=== PATIENT | male | born 1955 | race Caucasian/White ===

== ENCOUNTER → 2019-01-08 | Day surgery (SDC) | payer BC ==
[2018-12-31 14:23] LABS: ANION GAP 13.2 mmol/L (8-16); BLOOD UREA NITROGEN 23 mg/dL (7-26); BUN/CREATININE RATIO 20 (6-25); CALCIUM 9.9 mg/dL (8.4-10.2); CARBON DIOXIDE 27 mmol/L (22-29); CHLORIDE 103 mmol/L (98-107); CREATININE, SERUM 1.15 mg/dL (0.72-1.25); EST GLOMERULAR FILTRATION RATE > 60 ML/MIN (60-); GLUCOSE 177 mg/dL (74-118); POTASSIUM 4.2 mmol/L (3.5-5.1); SODIUM 139 mmol/L (136-145)
[~2019-01-08] MED LIST: ALLOPURINOL300 MG PO; ASPIR 8181 MG PO; ATORVASTATIN CA20 MG PO; BACITRACIN 50,000 UNIT VIAL ONE; BUPIVACAINE HCL 0.5% INJ 30 ML VIAL INJ ONE; BYDUREON SQ; CALAN SR120 MG PO; CLINDAMYCIN PHOS 900MG/ 50ML 50 ML IV ONE; DEXAMETHASONE SOD PHOS INJ 4 MG/ML VIAL ONE; EPHEDRINE SULFATE INJ 50 MG/10 ML SYR ONE; FENTANYL CITRATE/PF 100MCG/2 ML INJ ONE; GLIMEPIRIDE2 MG PO; INVOKAMET PO; IRBESARTAN150 MG PO; KETOROLAC TROMETHAMINE 30 MG/ML VIAL ONE; LIDOCAINE HCL 2% LOCAL INJ 5 ML SDV VIAL INJ ONE; LYRICA50 MG PO; MIDAZOLAM HCL 2 MG/2 ML VIAL ONE; ONDANSETRON HCL INJ 2MG/ML 2ML 2 MG/ML VIAL ONE; PROPOFOL IV EMULSION 10 MG/ML 20 ML VIAL ONE; SEVOFLURANE INHAL SOLN 250 ML PEN BTL ONE; VASCEPA PO; [UNRECOGNIZED DRUG - OTHER] INJ; [UNRECOGNIZED DRUG - OTHER] PO
[2019-01-08 08:35] VITALS: BP 123/66
--- NOTE | 2019-01-08 14:25 | Operative Report ---
DATE OF PROCEDURE: 01/08/2019 SURGEON: Kristie Wolfe DPM TAXICAB COORDINATOR SURGEON: Radha Munoz DPM PREOPERATIVE DIAGNOSES: 1. Right hallux arthritis with bone fragment. 2. Right hallux exostosis. PREOPERATIVE DIAGNOSES: 1. Right hallux arthritis with bone fragment. 2. Right hallux exostosis. PLANNED PROCEDURE: 1. Right hallux interphalangeal joint fusion with excision of bone fragment. 2. Exostectomy of right hallux. TAXICAB COORDINATOR: Kristie Wolfe DPM. ANESTHESIA: General with a postoperative block consisting of 10 mL of 0.5% Marcaine plain. HEMOSTASIS: Pneumatic thigh tourniquet set at 350 mmHg for a total time of approximately 30 minutes. MATERIALS: One 4.0 cannulated Synthes screw, 3-0 Vicryl, 4-0 nylon. ESTIMATED BLOOD LOSS: Less than 10 mL. PATHOLOGY: None. PROCEDURE NOTE: The patient was seen in the preoperative waiting room, where the correct procedure and side was identified. The patient was brought to the operating room and placed on the operating room table in the supine position. General anesthesia was initiated at this time. A well-padded pneumatic tourniquet was placed about the patient's right thigh. The right foot, ankle, and leg were then scrubbed, prepped and draped in the usual aseptic manner. The right foot, ankle, and leg were exsanguinated with an Esmarch bandage and the pneumatic thigh tourniquet was inflated to 350 mmHg for a total time of approximately 30 minutes. Attention was directed to the dorsal aspect of the patient's right hallux, where a 3 cm linear incision was made directly over the interphalangeal joint. Incision was carried through the subcutaneous tissues them from deep or underlying structures. All vital and neurovascular structures were identified, retracted medial and lateral, and all bleeders were cauterized or ligated as deemed necessary. At this time with care to ensure that the extensor hallucis longus was intact, a capsulotomy was performed at the interphalangeal joint. It should be noted that upon incision, a large bone fragment was noted to be floating free in the joint, which was excised and passed off to the back table. Utilizing a sagittal saw, the articular cartilage of the head of the proximal phalanx was brought to the base of the distal phalanx was resected and passed off to the back table. The remaining articular cartilage was denuded with a rongeur and curette. The wound was then copiously irrigated with sterile saline mixed with bacitracin. Next, utilizing a guidewire, Synthes 4.0 cannulated screw was placed through the distal phalanx distally and then retrograded proximally into the proximal phalanx and confirmed with intraoperative fluoroscopy. One 44 mm x 4.0 cannulated screw was placed across the interphalangeal joint and there was noted to be good apposition across the joint. Next, a second stab incision was made along the medial aspect of the patient's right hallux. The incision was carried down to the level of bone it from deep or underlying structures. Utilizing a 44 bur, the exostectomy was excised and rounded to anatomic alignment and then rasped utilizing a bone rasp. The wound was then flushed with copious amounts of sterile saline. The incision site was reapproximated with 3-0 Vicryl and 4-0 nylon. One simple interrupted suture was placed along the distal tip of the patient's right hallux for the percutaneous stab incision for the 4.0 cannulated screw. The incision site was then dressed with Adaptic, 4x4's, Kerlix, Tyrese wrap, and a postoperative shoe. The patient tolerated the procedure and anesthesia well. The patient was transferred to the postoperative recovery room with vital signs stable and vascular status intact. The patient was monitored there for a short period of time before being sent home with the final written and oral instructions: 1. Keep the dressing clean, dry and intact. 2. The patient is to remain partial heel touch weightbearing and to avoid excessive ambulation until being seen in the office. 3. The patient was given the office number to try to contact us if any problems should arise. Dictated by Kristie Wolfe DPM S PENNY Mckay (Charley)/MODL /[id number] [place]
== END | disposition home or self-care (01) ==
LOC: OR 05:09
PROVIDERS: ATTEND Podiatrist Foot & Ankle Surgery
DX: M13.871 Other specified arthritis, right ankle and foot (principal); M24.074 Loose body in right toe joint(s); M77.51 Other enthesopathy of right foot and ankle; M10.9 Gout, unspecified; E11.9 Type 2 diabetes mellitus without complications; I10 Essential (primary) hypertension; E78.00 Pure hypercholesterolemia, unspecified; N20.0 Calculus of kidney; Z88.0 Allergy status to penicillin; Z01.810 Encounter for preprocedural cardiovascular examination; Z01.812 Encounter for preprocedural laboratory examination; Z79.82 Long term (current) use of aspirin; Z79.84 Long term (current) use of oral hypoglycemic drugs; Z86.11 Personal history of tuberculosis; Z87.891 Personal history of nicotine dependence
CPT/HCPCS: 28755; 36415 ×2; 80048; 82948; 93005; J1100; J1885; J2001; J2250; J2405; J2704

== ENCOUNTER → 2021-10-11 | Outpatient (CLI) | payer MEDICARE, BC ==
[~2021-10-11] MED LIST changes: -BACITRACIN 50,000 UNIT VIAL ONE; -BUPIVACAINE HCL 0.5% INJ 30 ML VIAL INJ ONE; -CLINDAMYCIN PHOS 900MG/ 50ML 50 ML IV ONE; -DEXAMETHASONE SOD PHOS INJ 4 MG/ML VIAL ONE; -EPHEDRINE SULFATE INJ 50 MG/10 ML SYR ONE; -FENTANYL CITRATE/PF 100MCG/2 ML INJ ONE; -KETOROLAC TROMETHAMINE 30 MG/ML VIAL ONE; -LIDOCAINE HCL 2% LOCAL INJ 5 ML SDV VIAL INJ ONE; -MIDAZOLAM HCL 2 MG/2 ML VIAL ONE; -ONDANSETRON HCL INJ 2MG/ML 2ML 2 MG/ML VIAL ONE; -PROPOFOL IV EMULSION 10 MG/ML 20 ML VIAL ONE; -SEVOFLURANE INHAL SOLN 250 ML PEN BTL ONE
== END ==
LOC: MRI 09:52
PROVIDERS: ATTEND Podiatrist Foot & Ankle Surgery
DX: M86.572 Other chronic hematogenous osteomyelitis, left ankle and foot (principal)